=== PATIENT | male | born 1970 | race Asian ===

== ENCOUNTER 2016-10-23 20:41 | Inpatient (IN) | payer BC ==
[~2016-10-23] VITALS: Ht 165.1 cm; Wt 65.3 kg
[2016-10-23 20:45] VITALS: BP_SYST 132
--- NOTE | 2016-10-23 20:59 | NUR ---
Patient to ER bed 4 to gown for evaluation. Side rails up. Report given to ELAINE PAYAN.
[2016-10-23] MEDS ORDERED: NACL 0.9% 1,000 ML IV ONE ×2 (21:03→21:15)
--- NOTE | 2016-10-23 21:04 | NUR ---
Patient alert and oriented x 4. Came in the ER accompanied by his and 2 kids with complaints of chest pressure pain. Patient stated that [place] the [place] when he felt pressure on his chest and it bothered him that's why they turned back and came here. Patient denies dizziness, headach or fever. No nausea, vomiting or diarrhea. No acute distress or SOB noted at this time. Will continue to monitor.
[2016-10-23] MEDS ORDERED: LIDOCAINE VISCOUS 2%, 15 ML UDC MM ONE (21:15)
[2016-10-23] MEDS ORDERED: ASPIRIN 81 MG TAB.CHEW PO ONE (21:15)
[2016-10-23] MEDS ORDERED: PANTOPRAZOLE SODIUM 40 MG/VIAL (PROTONIX) IVP ONE (21:15)
[2016-10-23] MEDS ORDERED: BELLADONNA ALKALOIDS/PHENOBARB 5 ML UDC PO ONE (21:15)
[2016-10-23] MEDS ORDERED: MAG-AL HYDROX/SIMETH 30 ML UDC PO ONE (21:15)
--- NOTE | 2016-10-23 21:16 | NUR ---
ER Dr. Espana at bedside examining patient.
[2016-10-23 21:26] LABS: BASOPHILS % (AUTO) 0.5 % (0.0-2.0); EOSINOPHILS # (AUTO) 0.2 K/uL (0.0-0.4); EOSINOPHILS % (AUTO) 1.8 % (0.0-4.0); HEMATOCRIT 46.8 % (36-54); HEMOGLOBIN 15.5 g/dL (14.0-18.0); LYMPHOCYTES # (AUTO) 1.6 K/uL (1.0-5.5); LYMPHOCYTES % (AUTO) 16.7 % (20.5-51.5); MEAN CORPUSCULAR HEMOGLOBIN 29 pg (27-31); MEAN CORPUSCULAR HGB CONC 33 % (32-36); MEAN CORPUSCULAR VOLUME 88 fL (79.0-98.0); MONOCYTES # (AUTO) 0.4 K/uL (0.0-1.0); MONOCYTES % (AUTO) 3.8 % (1.7-9.3); NEUTROPHILS # (AUTO) 7.2 K/uL (1.8-7.7); NEUTROPHILS % (AUTO) 77.2 % (40.0-70.0); PLATELET COUNT (AUTO) 325 K/uL (130-430); RED BLOOD CELL COUNT(AUTO) 5.34 MIL/uL (4.2-6.2); RED CELL DISTRIBUTION WIDTH 12.7 % (9.0-15.0); WHITE BLOOD COUNT (AUTO) 9.4 K/uL (4.8-10.8)
[2016-10-23 21:29] LABS: ANION GAP 13 (5-15); CALCIUM 9.1 mg/dL (8.4-11.0); CHLORIDE 101 mmol/L (98-107); CREATININE 1.23 mg/dL (0.55-1.30); GLUCOSE 236 mg/dL (70-99); POTASSIUM 3.5 mmol/L (3.5-5.1); SODIUM SERUM 140 mmol/L (136-145); UREA NITROGEN, BLOOD 14 mg/dL (8-21)
[2016-10-23 21:30] LABS: GFR AFRICAN AMERICAN 82 mL/min (>90)
[2016-10-23] MEDS ORDERED: LORazepam 2 MG/ML VIAL (FOR ER USE) IVP ONE (21:30)
[2016-10-23 21:34] LABS: INR 0.9 (0.80-1.20); PROTHROMBIN TIME 9.6 SECS (9.5-12.5)
[2016-10-23 21:38] LABS: ALANINE AMINOTRANSFERASE 35 U/L (12-78); ALBUMIN 4.3 g/dL (3.4-4.8); ASPARTATE AMINOTRANSFERASE 18 U/L (10-37); TOTAL BILIRUBIN 0.3 mg/dL (0.0-1.0); TOTAL PROTEIN, SERUM 7.5 g/dL (6.4-8.3)
[2016-10-23] MEDS ORDERED: ASPI81TA2 PO (22:13)
[2016-10-23] MEDS ORDERED: METF1000 PO (22:13)
[2016-10-23] MEDS ORDERED: LOVA20TA2 PO (22:15)
[2016-10-23] MEDS ORDERED: CANA100T PO (22:18)
[2016-10-23] MEDS ORDERED: AMLO-506 PO (22:19)
[2016-10-23] MEDS ORDERED: MORPHINE 2 MG/ML INJ. SYRINGE IVP PRN (22:45)
--- NOTE | 2016-10-23 22:51 | NUR ---
ADMIT NOTE Received pt from ER to the floor with a diagnosis of chest pain. Admission process initiated. patient oriented to pain management, safety and call light-teach back done.
--- NOTE | 2016-10-23 22:53 | NUR ---
Patient will be admitted under the care of Dr. Aquino. Admitted to telemetry unit. Will go to room 130 B. Belongings list completed. Summary report printed. Report will be given at bedside.
[2016-10-23 22:59] VITALS: BP_SYST 124
[2016-10-23 23:00] VITALS: BP_SYST 124
--- NOTE | 2016-10-23 23:00 | NUR ---
pt.received via the er-dept.preethi mayes;rn adn/rn received the pt.has initiated the pt';s info/data collection. admit;signs/symptomology;chest pain pt.states no chest pain/discomfort.iv fluids initiated.iv-access line; location;lt.antecubital.enoch light placed w/in pt's reach.
--- NOTE | 2016-10-23 23:00 | NUR ---
CONSULTATION PAGED REASON FOR CONSULTATION:CHEST PAIN WAS CONSULT CALLED?Y PERSON WHO WAS NOTIFIED:PAYTON HINTON CONSULTING PHYSICIAN:BRISEIDA GARCIA SALVAGE [employer]ER AND INSPECTOR SPECIALTY:CARDIO SALVAGE [employer]ER AND INSPECTOR PHONE NUMBER:[phone]
[2016-10-23] MEDS: NACL 0.9% 1,000 ML IV SCH (23:31)
--- NOTE | 2016-10-24 | NUR ---
pt.assessed.v/s assessed;values w/in normal limits.blood glucose assessed;91mg/dl.pt.has been provide w/ a snack. no c/o pain;chest/general nor nausea.
[2016-10-24 00:34] VITALS: BP_SYST 124
--- NOTE | 2016-10-24 02:00 | NUR ---
pt.assessed.pt.presents quiescent affect;calm,asleep.no distress/discomfort manifested. call light w/in pt's reach.
--- NOTE | 2016-10-24 04:00 | NUR ---
pt.assessed.v/s assessed:values w/in normal limits.@bedside.no c/o pain,nausea. call light w/in pt's reach.
[2016-10-24 04:40] VITALS: BP_SYST 105
--- NOTE | 2016-10-24 06:00 | NUR ---
pt.assessed.@bedside.i have assessed the blood glucose;101mg/dl.i have re-established the iv access: lt.hand:22g i have re-connected the iv fluids.i inquired if the pt.presents requests@this hour pt.stated no he is fine.call light w/in the pt's reach.
--- NOTE | 2016-10-24 08:00 | NUR ---
AM rounds Patient received awake alert oriented x4. Patient denies any pain no chest pain. Patient has stable vital signs. No distress. at bedside, call light in reach.
[2016-10-24] MEDS: PANTOPRAZOLE SODIUM 40 MG TAB PO SCH (08:20)
[2016-10-24] MEDS: ENOXAPARIN SODIUM 40 MG/0.4 ML SYRINGE SUBCUT SCH (08:22)
--- NOTE | 2016-10-24 09:00 | NUR ---
Dr Karan beaulieu
[2016-10-24] MEDS ORDERED: DEXTROSE 50% JECT 50 ML DISP.SYRIN IVP PRN (10:00)
[2016-10-24] MEDS ORDERED: INSULIN ASPART 100 UNITS/ML, 10 ML VIAL (NovoLOG) SUBCUT PRN (10:00)
[2016-10-24 11:54] VITALS: BP_SYST 100
--- NOTE | 2016-10-24 11:58 | NUR ---
Patient blood glucos shecked. Did some diet education regarding diabetic diet. Patient and are both very receptive and supportive. Both verbalized understanding. call light in reach.
[2016-10-24] MEDS: NACL 0.9% 1,000 ML IV SCH ×2 (15:15→18:45)
--- NOTE | 2016-10-24 15:16 | NUR ---
Patient waiting for US for his us abdomen at this time. Pt stable alert calm. call light in reach.
--- NOTE | 2016-10-24 15:18 | NUR ---
Patient received awake alert oriented x4. Patient denies any pain no chest pain. Patient has stable vital signs. No distress. at bedside, call light in reach.
[2016-10-24 17:14] VITALS: BP_SYST 123
--- NOTE | 2016-10-24 18:41 | NUR ---
CLOSING NOTE Patient stable, call light in reach. Patients eating dinner.
[2016-10-24 20:05] VITALS: BP_SYST 119
--- NOTE | 2016-10-24 20:05 | NUR ---
INITIAL NOTES: PATIENT IN BED AWAKE ,ORIENTED X4. AT BEDSIDE. DENIES CHEST PAIN NOR SOB. STILL SLIGHT WITH EPIGASTRIC DISCOMFORT.NORMAL SALINE IVF INFUSING AT 100ML/HR. TO LEFT AC #20 GAUGE ,SITE CLEAR. SINUS RHYTHM ON TELEMONITOR. VITAL SIGNS STABLE. CALL LIGHT WITHIN REACH .BEDS IN LOW POSITION. PATIENT WANTS TO GO HOME . SEEN PATIENT FOR CARDIOLOGY CONSULT THIS 1645PM PER REPORT AND PATIENT AND MD SAID VERBALLY PATIENT IS CLEARED FROM CARDIOLOGY. NO RESULT YET FOR ABDOMINAL ULTRASOUND. BLOOD SUGAR IS STILL BEING MONITORED.CREATIVE CONSULTANT IS AWARE,EXPLAINED TO PATIENT AND . PATIENT UNDERSTAND WHOLE SITUATION ,.WILL PROVIDE SLEEPING CHAIR TO STAY SINCE UNABLE TO DRIVE HOME.
[2016-10-24] MEDS ORDERED: LOVASTATIN 20 MG TABLET PO SCH (21:00)
[2016-10-24] MEDS ORDERED: SIMVASTATIN 10 MG TABLET PO SCH (21:00)
--- NOTE | 2016-10-24 21:30 | NUR ---
MEDS ADMIN: BLOOD SUGAR RESULT 103MG/DL. ALL DUE PO MEDS GIVEN WITHOUT DIFFICULTY. IVF INFUSING WELL.
--- NOTE | 2016-10-24 21:45 | NUR ---
VOID: AMBULATES TO BATHROOM WITH STEADY GAIT TO VOID WITHOUT DIFFICULTY.
[2016-10-24 23:57] VITALS: BP_SYST 108
--- NOTE | 2016-10-25 | NUR ---
COMFORT: PATIENT RESTING IN BED STILL WATCHING TV SHOWS.
[2016-10-25] MEDS: NACL 0.9% 1,000 ML IV SCH (00:27)
--- NOTE | 2016-10-25 01:45 | NUR ---
BRADYCARDIA: HEART RATE 47-50. SEEN PATIENT SOUND ASLEEP ON SUPINE POSITION. WILL MONITOR CLOSELY.
--- NOTE | 2016-10-25 02:05 | NUR ---
HEART RATE UP TO 7074/MIN.THIS TIME. SEEN PATIENT CHANGED POSITION.
--- NOTE | 2016-10-25 02:20 | NUR ---
ROUNDS: PATIENT SLEEPING THIS TIME.
[2016-10-25 04:04] VITALS: BP_SYST 100
--- NOTE | 2016-10-25 04:10 | NUR ---
ROUNDS: PATIENT RESTING WITH EYES CLOSE. BREATHING PATTERN SYMMETRICAL.
[2016-10-25 06:22] LABS: CALCIUM 8.5 mg/dL (8.4-11.0); CREATININE 0.81 mg/dL (0.55-1.30); POTASSIUM 4.1 mmol/L (3.5-5.1)
[2016-10-25 06:26] LABS: BASOPHILS # (AUTO) 0.1 K/uL (0.0-0.2); BASOPHILS % (AUTO) 0.9 % (0.0-2.0); EOSINOPHILS # (AUTO) 0.2 K/uL (0.0-0.4); EOSINOPHILS % (AUTO) 2.9 % (0.0-4.0); HEMATOCRIT 43.1 % (36-54); HEMOGLOBIN 14.4 g/dL (14.0-18.0); LYMPHOCYTES # (AUTO) 2.7 K/uL (1.0-5.5); LYMPHOCYTES % (AUTO) 42.3 % (20.5-51.5); MEAN CORPUSCULAR HEMOGLOBIN 30 pg (27-31); MEAN CORPUSCULAR HGB CONC 33 % (32-36); MEAN CORPUSCULAR VOLUME 89 fL (79.0-98.0); MONOCYTES # (AUTO) 0.4 K/uL (0.0-1.0); MONOCYTES % (AUTO) 6.4 % (1.7-9.3); NEUTROPHILS # (AUTO) 2.9 K/uL (1.8-7.7); NEUTROPHILS % (AUTO) 47.5 % (40.0-70.0); PLATELET COUNT (AUTO) 292 K/uL (130-430); RED BLOOD CELL COUNT(AUTO) 4.87 MIL/uL (4.2-6.2); RED CELL DISTRIBUTION WIDTH 12.6 % (9.0-15.0); WHITE BLOOD COUNT (AUTO) 6.4 K/uL (4.8-10.8)
--- NOTE | 2016-10-25 06:30 | NUR ---
CLOSING: BLOOD SUGAR 102MG/DL. NO SIGN OF HYPOGLYCEMIA.SLEPT AT LONG INTERVALS. NO CHEST PAIN NOR EPIGASTRIC DISCOMFORT. NO ACUTE CARDIOPULMONARY DISTRESS WHOLE SHIFT.VITAL SIGNS STABLE.WANTS TO GO HOME THEN GO TO WORK THIS PM.
--- NOTE | 2016-10-25 07:45 | NUR ---
NOTIFIED Tristen MADRIGAL ABOUT PATIENT REQUESTS TO GO HOME VIA PHONE. STATED I AM COMMING SOON. PATIENT INFORMED.
[2016-10-25 08:00] VITALS: BP_SYST 117
--- NOTE | 2016-10-25 08:00 | NUR ---
OPENING NOTES, RECEIVED PT SITTING ON EDGE OF BED, PT IS ALERT ORIENTED X 4 , DENIES PAIN NO SOB, NO DISTRESS. IV ACCESS ON L. ARM INTACT AND PATENT. INFUSING WELL. CALL LIGHT IN REACH AND BED IN LOW POSITION. BED ALARM ON . SAFETY PRECAUTION IN PLACE. PATIENT INSTRUCTED TO CALL FOR ASSIST AND PAIN MEDS. WILL CONT TO MONITOR.
[2016-10-25] MEDS: PANTOPRAZOLE SODIUM 40 MG TAB PO SCH (08:20)
[2016-10-25] MEDS: ENOXAPARIN SODIUM 40 MG/0.4 ML SYRINGE SUBCUT SCH (08:24)
[2016-10-25] MEDS ORDERED: NON-FORMULARY MEDICATION (Amlodipine Bes/Olmesartan Med (Amlodipine-Olmesartan 10-40 mg) 1 PO SCH (09:00)
[2016-10-25] MEDS ORDERED: LOSARTAN POTASSIUM 50 MG TABLET (COZAAR) PO SCH (09:00)
[2016-10-25] MEDS ORDERED: ASPIRIN 81 MG TAB.CHEW PO SCH (09:00)
[2016-10-25] MEDS ORDERED: metFORMIN HCL 500 MG TABLET PO SCH (09:00)
[2016-10-25] MEDS ORDERED: amLODIPine BESYLATE 10 MG TABLET PO SCH (09:00)
--- NOTE | 2016-10-25 10:00 | NUR ---
ROUNDING NOTES, PT IN ROOM, WALKING, FAMILY AT BEDSIDE, NO SOB,N DISTRESS. NO PAIN. WAITING FOR DC HOME PAPER. WILL CONT TO MONITOR.
[2016-10-25 10:14] VITALS: BP_SYST 128
[2016-10-25 10:31] VITALS: BP_SYST 128
--- NOTE | 2016-10-25 10:53 | NUR ---
D/C Patient Patient given medication reconciliation form and D/C instructions. Exit Care provided. Patient verbalized understanding. MD discussed with patient the results and treatment provided. Ambulatory with steady gait for discharge to home. Patient in stable condition, ID band removed. IV catheter removed, intact and dressing applied, no active bleeding. Rx of given. Patient educated on pain management. All belongings sent with patient.
[2016-10-25 11:15] VITALS: BP_SYST 128
== END 2016-10-25 10:45 | disposition home or self-care (01) | DRG 392 ==
LOC: SED 20:41 → STU 22:36
PROVIDERS: ADMIT General Practice; ATTEND General Practice
DX: K21.9 Gastro-esophageal reflux disease without esophagitis (principal); F41.1 Generalized anxiety disorder; I10 Essential (primary) hypertension; E11.65 Type 2 diabetes mellitus with hyperglycemia; K44.9 Diaphragmatic hernia without obstruction or gangrene; Z79.84 Long term (current) use of oral hypoglycemic drugs; Z79.82 Long term (current) use of aspirin; Z87.891 Personal history of nicotine dependence; Z90.49 Acquired absence of other specified parts of digestive tract; Z79.899 Other long term (current) drug therapy
CPT/HCPCS: 36415; 71010; 76700-TC; 80048; 80053; 82962; 83036; 83735-TC; 84484; 85025; 85610-TC; 85730-TC; 93005; 96361; 96374; 96375; 99285; C9113; J1650; J1815; J2001; J2060; J7030